=== PATIENT | male | born 1985 | race Two or more races ===

== ENCOUNTER 2023-10-16 13:14 | Emergency (ER) | payer OTHER ==
[~2023-10-16] VITALS: Ht 177.8 cm; Wt 83.9 kg
[2023-10-16] MEDS ORDERED: LIDOCAINE HCL 100 MG/10ML VIAL PERCUT ONE (16:15)
[2023-10-16] MEDS ORDERED: TETANUS & DIPHTHERIA TOX,ADULT 0.5 ML VIAL IM ONE (16:15)
[2023-10-16] MEDS ORDERED: DUI500 PO (16:51)
== END 2023-10-16 17:31 | disposition home or self-care (01) ==
LOC: ER 13:14
DX: S61.021A Laceration with foreign body of right thumb without damage to nail, initial encounter (principal); W45.8XXA Other foreign body or object entering through skin, initial encounter; Y93.89 Activity, other specified; Y92.89 Other specified places as the place of occurrence of the external cause